=== PATIENT | male | born 1935 | race Caucasian/White ===

== ENCOUNTER 2017-06-18 10:49 | Outpatient (CLI) | payer MEDICARE ==
--- NOTE | 2017-06-18 12:51 | RAD ---
CHEST 2 VIEWS: HISTORY: Dyspnea. COMPARISON: 05/28/16. FINDINGS: Cardiac silhouette and pulmonary vasculature are unremarkable. Calcified granulomata are consistent with healed granulomatous disease. Lungs remain hyperinflated with flattening of the hemidiaphragms and mild bibasilar atelectasis, right greater than left. There is no lobar consolidation, pneumothor ax, or pleural fluid visible. IMPRESSION: 1. Chronic obstructive pulmonary disease. 2. Atherosclerosis. POS: [facility]
== END 2017-06-18 10:50 | disposition home or self-care (01) ==
LOC: RAD 10:49
PROVIDERS: ATTEND Internal Medicine Critical Care Medicine
DX: R06.00 Dyspnea, unspecified (principal); J44.9 Chronic obstructive pulmonary disease, unspecified; I70.90 Unspecified atherosclerosis
CPT/HCPCS: 71046

== ENCOUNTER 2017-11-02 12:11 | Emergency (ER) | payer MEDICARE | END 2017-11-02 12:38 | disposition home or self-care (01) | LOC: ERS 12:11 | DX: S51.012A Laceration without foreign body of left elbow, initial encounter (principal); E78.5 Hyperlipidemia, unspecified; I10 Essential (primary) hypertension; I25.10 Atherosclerotic heart disease of native coronary artery without angina pectoris; Z85.46 Personal history of malignant neoplasm of prostate; W19.XXXA Unspecified fall, initial encounter | CPT/HCPCS: 99283 ==

== ENCOUNTER 2018-11-10 10:29 | Outpatient (CLI) | payer MEDICARE ==
--- NOTE | 2018-11-10 10:41 | RAD ---
Exam: CHEST 2 VIEWS: COMPARISON: 06/18/2017. HISTORY: Dyspnea. FINDINGS: Slight elongation of the aorta. Normal cardiac silhouette. Coronary calcifications and coronary arter y stents are noted. Pulmonary vessels are normal. Costophrenic angles are clear. Hyperinflation with chronic change. Round mass right lower lobe measuring 4.2 x 3.2 cm. No pneumothorax. IMPRESSION: 1. Hyperinflation. COPD. Chronic changes. 2. Right lower lobe masslike opacity. Chest CT is recommended. CODE T CODE LN. Transcribed Date/Time: 11/10/2018 10:58 AM
== END 2018-11-10 10:30 | disposition home or self-care (01) ==
LOC: RAD 10:29
PROVIDERS: ATTEND Internal Medicine Pulmonary Disease
DX: R06.00 Dyspnea, unspecified (principal); J44.9 Chronic obstructive pulmonary disease, unspecified; J98.4 Other disorders of lung
CPT/HCPCS: 71046

== ENCOUNTER 2018-11-11 12:46 | Outpatient (CLI) | payer MEDICARE ==
[~2018-11-11 12:46] MED LIST: Iopamidol 370 76% 100 ML VIAL ONE
--- NOTE | 2018-11-11 14:20 | CT ---
CT CHEST WITH IV CONTRAST: 11/11/18 HISTORY: Lung mass. COMPARISON: 08/10/16. FINDINGS: Lungs remain hyperinflated. The dominant soft tissue density mass with peripheral spiculation at the lateral base of the right lower lobe now measures up to 5.7 cm x 2.8 cm width x 5.7 cm depth. Large r than on the prior exam. Tiny nodules scattered throughout the remainder of the right lung and bilateral areas of parenchymal scarring are stable. No pleural fluid or pneumothorax. No enlarged lymph nodes are apparent within th e mediastinum. Prominent arterial calcifications. Adrenal glands are unremarkable. No enlarged lymph nodes are apparent within the mediastinum. IMPRESSION: Significant interval enlargement of right lower lobe mass. Atherosclerosis. POS: [facility]
--- NOTE | 2018-11-11 15:55 | HP ---
HISTORY OF PRESENT ILLNESS: Mr. Sanchez is an 83-year-old gentleman, who was found to have a right lower lung mass 3 x 4 cm, and he is scheduled for outpatient bronchoscopy and biopsy. He has been seen in the office since 2016, was initially referred here for a right lower lung spiculated mass, which we have been watching since 2016. He had a PET scan done in 2011, which was negative. He was found to have severe COPD. His subsequent x-rays were followed up and showed the right lower lung lesion to have no longer persisted. He is being followed every 6 months with a chest x-ray. His last x-ray 6 months ago was read as normal. His x-ray taken yesterday shows now clearly enlarging right lower lung mass. He is asymptomatic. No cough. No wheezing. No chest pain. No weight loss. PAST MEDICAL HISTORY: Pertinent for coronary artery disease, COPD, high cholesterol. PAST SURGICAL HISTORY: Prostate surgery, knee surgery, multiple cardiac stents. HOME CARDIAC MEDICATIONS: Include: 1. Aspirin a day. 2. Lipitor 40. 3. Advair 250. 4. Xanax. 5. ProAir as needed. ALLERGIES: NONE. SOCIAL HISTORY: Alcohol daily, wine. REVIEW OF SYSTEMS: Negative. PHYSICAL EXAMINATION: VITAL SIGNS: Sats were 94% on room air, pulse 80, blood pressure no wheezing or crackles. CARDIAC: Normal S1 and S2. No gallops. ABDOMEN: No masses. IMPRESSION: 1. Right lower lung slowly increasing mass, rule out bronchogenic carcinoma. 2. Chronic obstructive pulmonary disease. 3. Former smoker. 4. Peripheral vascular disease. 5. Coronary artery disease. PLAN: A bronchoscopy performed. We will repeat a PFT. Probably consider a PET scan before any surgical intervention is concerned. The patient understands, we will proceed with procedure tomorrow. Job ID: [id number]
== END 2018-11-11 12:47 | disposition home or self-care (01) ==
LOC: SCSCT 12:46
PROVIDERS: ATTEND Internal Medicine Pulmonary Disease
DX: R91.8 Other nonspecific abnormal finding of lung field (principal); I70.90 Unspecified atherosclerosis
CPT/HCPCS: 71260; 82565; Q9967

== ENCOUNTER → 2018-11-12 | Day surgery (SDC) | payer MEDICARE ==
[2018-11-11 17:18] VITALS: BMI 25.7
[~2018-11-12] MED LIST changes: +Albuterol Sulfate 2.5 mg/3 ml Neb NEB SCH; +Benzocaine 20% Spray 60 ML CAN ONE; +Fentanyl 100 MCG/2 ML VIAL ONE; -Iopamidol 370 76% 100 ML VIAL ONE; +Lidocaine 1% (PF) 30 ML VIAL ONE; +Lidocaine 4% PF 5 ML AMP NEB SCH; +Midazolam HCl 2 mg/2 ml Vial ONE
--- NOTE | 2018-11-12 11:56 | OP ---
DATE OF PROCEDURE: 11/12/2018 PROCEDURE PERFORMED: Bronchoscopy with transbronchial biopsy. INDICATION: Right lower lung mass, rule out bronchogenic carcinoma. POSTBRONCHOSCOPY DIAGNOSIS: Right lower lung mass, rule out bronchogenic carcinoma. DESCRIPTION OF PROCEDURE: After informed consent, the patient received nebulized 4 mL of 4% lidocaine and DuoNeb. During the procedure, his left nostril was prepped with lidocaine jelly. He is given 2 of Versed and 75 of fentanyl. The video flexible Olympus bronchoscope was then passed by the right nostril. Pharynx, hypopharynx and vocal cords were visualized and unremarkable. Entering the trachea, this was normal. Naina was sharp. The right lung was inspected initially right upper, right middle, and right lower lobe. No endobronchial obstruction or blood or pus seen. The left lung inspected thereafter. This is also unremarkable without any endobronchial obstruction, blood, or pus. Thereafter, the right lower lung was lavaged with normal saline total of 60 mL. Thereafter, under fluoroscopy, transbronchial biopsies corresponding to the right lower lobe, lateral anterior basilar segment were done. There was minimal bleeding, which was controlled with serial lavages. The patient otherwise tolerated the procedure well. The washings sent for AFB smear and culture, fungal smear and culture, routine Gram stain and C and S. The biopsy was sent for histopathology. Brushing was sent for cytology. BRIEF DISCHARGE NOTE: The patient tolerated the procedure well. Results will be made to the patient and family. Further recommendation as above. Job ID: [id number]
[2018-11-16 18:08] LABS: Fungus Stain Final report (.)
== END ==
LOC: SDC 08:06
PROVIDERS: ATTEND Internal Medicine Pulmonary Disease
PROC: 0BBF8ZX Excision of Right Lower Lung Lobe, Via Natural or Artificial Opening Endoscopic, Diagnostic (ICD-10-PCS; principal; 2018-11-12)
PROC: 0B9F8ZX Drainage of Right Lower Lung Lobe, Via Natural or Artificial Opening Endoscopic, Diagnostic (ICD-10-PCS; 2018-11-12)
PROC: 0B9F8ZX Drainage of Right Lower Lung Lobe, Via Natural or Artificial Opening Endoscopic, Diagnostic (ICD-10-PCS; 2018-11-12)
DX: J98.4 Other disorders of lung (principal); I25.10 Atherosclerotic heart disease of native coronary artery without angina pectoris; J44.9 Chronic obstructive pulmonary disease, unspecified; E78.00 Pure hypercholesterolemia, unspecified; I73.9 Peripheral vascular disease, unspecified; Z87.891 Personal history of nicotine dependence; Z95.5 Presence of coronary angioplasty implant and graft; Z79.82 Long term (current) use of aspirin; Z79.51 Long term (current) use of inhaled steroids; Z79.899 Other long term (current) drug therapy
CPT/HCPCS: 76000; 87070; 87102; 87116; 87205; 87206; 88104; 88112; 88305; 88312; 88313; 99152; 99153; J2001; J2250; J3010; J7620

== ENCOUNTER 2018-11-30 12:27 | Outpatient (CLI) | payer MEDICARE ==
--- NOTE | 2018-11-30 12:44 | RAD ---
XR Chest Pa Lat @ POB History: RA 06.00 dyspnea Comparison: Radiograph November 10, 2018 Findings: Chronic scarring and fibrosis throughout the lungs. Similar appearance large right lower lo be mass abutting the major fissure. Lungs are hyperinflated. There is nodular density right upper lobe. Impression: Similar appearance right lower lobe mass.
== END 2018-11-30 12:28 | disposition home or self-care (01) ==
LOC: RAD 12:27
PROVIDERS: ATTEND Internal Medicine Pulmonary Disease
DX: R06.00 Dyspnea, unspecified (principal); R91.8 Other nonspecific abnormal finding of lung field
CPT/HCPCS: 71046

== ENCOUNTER 2018-12-09 11:23 | Outpatient (CLI) | payer MEDICARE ==
--- NOTE | 2018-12-09 14:02 | PET ---
Exam: PET CT WITH ATTENUATION CORRECTION: HISTORY: Right lower lobe mass. Initial evaluation. COMPARISON: None. CORRELATION: Chest CT with contrast 11/11/2018. TECHNIQUE: PET scan with CT attenuation correction was performed from the skull base to the proximal thighs following the intravenous administration of 11.9 mCi of [id number]. FINDINGS: Head and neck: No abnormal FDG localization. Chest: There is FDG avidity involving consolidation with air bronchograms in the right upper lobe, wi th a maximum SUV of 6.5. This area of consolidation was not appreciated on the CT from November 2018 and likely represents an acute pneumonia given rapid development. There is a focal mass in the right lower lobe but that has mixed FDG avidity. The majority of this lesion has a maximum SUV of 3.2. There is a focal component that has a maximum SUV of 6.5. This focal component is felt to represent t he invasive component of adenocarcinoma. CT used for attenuation correction demonstrates patchy septal thickening in the middle lobe. There is a new nodule in the left upper lobe which is not significantly FDG avid. Nodule has a maximum SUV of 2.2 and was not present on the November 2018 CT. Abdomen pelvis: There is no abnormal FDG localization in the abdomen or pelvis. CT used for attenuati on correction demonstrates an endovascular stent. There is associated aneurysmal dilatation of the aorta, without obvious fat stranding. There is evidence of diverticulosis. There is evidence of previous prostate surgery Osseous structures: No abnormal FDG localization. IMPRESSION: 1. FDG avid consolidation in the right upper lobe has developed since the chest CT performed earlier in November 2018. Given rapid development, pneumonia is favored. 2. Focal mass like opacity in right lower lobe, worrisome for adenocarcinoma. The small focus that h as the greatest amount of FDG avidity is felt to be the invasive component. Lesion is amenable to percutaneous biopsy. Transcribed Date/Time: 12/09/2018 2:29 PM
== END 2018-12-09 11:24 | disposition home or self-care (01) ==
LOC: PET 11:23
PROVIDERS: ATTEND Internal Medicine Pulmonary Disease
DX: R91.8 Other nonspecific abnormal finding of lung field (principal)
CPT/HCPCS: 78815; A9552

== ENCOUNTER 2018-12-17 08:32 | Day surgery (SDC) | payer MEDICARE ==
[2018-12-16 14:00] VITALS: BMI 25.7
[2018-12-17 08:56] LABS: #Basophils 0.1 thou/uL (0.0-0.2); #Eosinphils 0.5 thou/uL (0.0-0.7); #Lymphocytes 1.2 thou/uL (1.20-3.40); #Monocytes 0.5 thou/uL (0.11-0.59); #Neutrophils 4.8 thou/uL (1.40-6.50); %Basophils 0.7 % (0.0-1.0); %Eosinophils 6.9 % (0.0-10.0); %Lymphocytes 17.5 % (21.0-51.0); %Neutrophils 67.9 % (42.0-75.0); Hemoglobin 15.3 g/dL (14.0-18.0); Mean Corpuscular HGB CONC 31.4 g/dL (32.0-36.0); Mean Corpuscular Hemoglobin 29.8 pg (27.0-31.0); Mean Platelet Volume 7.2 fL (7.4-10.4); Platelet Count 213 thou/uL (130-400); RBC Distribution Width 12.1 % (11.5-14.5); Red Blood Cell (RBC) Count 5.12 mill/uL (4.70-6.10)
[2018-12-17 09:01] LABS: INR-International Normal Ratio 1.1; PTT 30.1 SEC (22.9-36.1); Prothrombin Time 14.1 SEC (12.0-14.7)
[2018-12-17 10:17] VITALS: BP 119/81; TEMP 97.2
--- NOTE | 2018-12-17 13:26 | RAD ---
Chest inspiratory views HISTORY: Right lung mass with biopsy. Follow-up. COMPARISON: Lungs are well-inflated. Right upper lobe infiltrate and right lower lobe mass are again demonstrated, unchanged in appearance. Mediastinum is midline allowing for slight rightward rotation. IMPRESSION: No evidence of pneumothorax.
--- NOTE | 2018-12-17 13:44 | RAD ---
CHEST 1 VIEW: INDICATION: Status post lung biopsy. FINDINGS: No pneumothorax demonstrated. Prominent masses within the right upper lobe and right lower lobe pers ist. Chronic lung changes are similar. IMPRESSION: No pneumothorax demonstrated. POS: [facility]
--- NOTE | 2018-12-17 15:36 | CT ---
CT-guided right lower lobe mass biopsy HISTORY: Hypermetabolic right lower lobe lung mass. FINDINGS: After explaining the procedure and answering all questions, patient was placed on the CT ta ble in prone position and limited CT imaging of the chest was performed. A right posterior approach was planned. Sterile technique, buffered local anesthesia, CT guidance, and a right posterior interco stal approach were used to carefully advance a 19-gauge trocar needle into the spiculated mass in the right lower lobe. Position was confirmed with CT. A total of 4 20-gauge core biopsy specimens were obtained and submitted to Dr. Dsouza from pathology f or evaluation. Specimen adequacy was confirmed. Needle was removed. No evidence of pneumothorax. Patient tolerated the procedure well and was eventually discharged in good condition. IMPRESSION: Technically successful CT-guided biopsy right lower lobe lung mass. Pathology is pending.
== END 2018-12-17 13:40 | disposition home or self-care (01) ==
LOC: CT 08:32
PROVIDERS: ATTEND Internal Medicine Pulmonary Disease
DX: R91.8 Other nonspecific abnormal finding of lung field (principal); J18.1 Lobar pneumonia, unspecified organism; A31.0 Pulmonary mycobacterial infection; I25.10 Atherosclerotic heart disease of native coronary artery without angina pectoris; J44.9 Chronic obstructive pulmonary disease, unspecified; E78.5 Hyperlipidemia, unspecified; C61 Malignant neoplasm of prostate; Z87.891 Personal history of nicotine dependence; Z95.5 Presence of coronary angioplasty implant and graft
CPT/HCPCS: 32405; 36415; 71045; 77002; 85025; 85610; 85730; 88307; 88313; 88333; 88334; 88341; 88342

== ENCOUNTER 2019-01-04 10:44 | Outpatient (CLI) | payer MEDICARE ==
--- NOTE | 2019-01-04 11:56 | RAD ---
EXAM: Single view of the chest HISTORY: Preadmission chest x-ray; lung cancer COMPARISON: 12/17/2018 FINDINGS: Single view of the chest shows a normal sized cardiomediastinal silhouette. Chronic inters titial lung markings are present. There is improvement in the previously seen airspace opacities in the right lung. The bones are unremarkable. IMPRESSION: Right-sided improvement in the pulmonary opacities.
[2019-01-04 12:04] LABS: Hemoglobin 15.8 g/dL (14.0-18.0); Mean Corpuscular HGB CONC 33.8 g/dL (32.0-36.0); Mean Corpuscular Hemoglobin 31.9 pg (27.0-31.0); Mean Corpuscular Volume 94.4 fL (78.0-98.0); Mean Platelet Volume 7.8 fL (7.4-10.4); Platelet Count 137 thou/uL (130-400); RBC Distribution Width 12.5 % (11.5-14.5); Red Blood Cell (RBC) Count 4.94 mill/uL (4.70-6.10)
[2019-01-04 12:25] LABS: Anion Gap 13 mmol/L (10-20); BUN (Urea Nitrogen) 15 mg/dL (8.4-25.7); Calc. Creatinine Clearance 0 mL/min (70-130); Calcium 9.7 mg/dL (7.8-10.44); Carbon Dioxide 25 mmol/L (23-31); Chloride 105 mmol/L (98-107); Estimated GFR-MDRD 88; Glucose 105 mg/dL (83-110); Potassium 4.2 mmol/L (3.5-5.1); Sodium 139 mmol/L (136-145)
--- NOTE | 2019-01-06 13:14 | EKG ---
Test Reason : Blood Pressure : / mmHG Vent. Rate : 075 BPM Atrial Rate : 075 BPM P-R Int : 154 ms QRS Dur : 086 ms QT Int : 392 ms P-R-T Axes : 080 074 077 degrees QTc Int : 437 ms Normal sinus rhythm Normal ECG When compared with ECG of 10-AUG-2016 14:40, No significant change was found Confirmed by FANG BARRY (2) on 01/06/2019 1:14:22 PM Referred By: [facility] Confirmed By:FANG BARRY
== END 2019-01-04 10:45 | disposition home or self-care (01) ==
LOC: LABBT 10:44
PROVIDERS: ATTEND Thoracic Surgery (Cardiothoracic Vascular Surgery)
DX: Z01.818 Encounter for other preprocedural examination (principal); R91.8 Other nonspecific abnormal finding of lung field
CPT/HCPCS: 71045; 80048; 85027; 93005; 93010

== ENCOUNTER 2019-01-04 11:00 | Inpatient (IN) | payer MEDICARE ==
[2019-01-08] MEDS ORDERED: Midazolam HCl 2 mg/2 ml Vial ONE ×2 (06:16→06:35)
[2019-01-08] MEDS ORDERED: Fentanyl 100 MCG/2 ML VIAL ONE ×3 (06:16→06:36)
[2019-01-08] MEDS ORDERED: ceFAZolin Sodium (SDC) 2 GM/100 ML BAG ONE (06:19)
[2019-01-08] MEDS ORDERED: Acetaminophen 1,000 MG in Premix Bag 1 BAG IVPB PRN (07:37)
[2019-01-08] MEDS ORDERED: Acetaminophen 500 MG TAB PO PRN (07:38)
[2019-01-08] MEDS ORDERED: diphenhydrAMINE 50 MG/ML VIAL IM PRN (07:45)
[2019-01-08] MEDS ORDERED: Promethazine HCl 25 MG/ML VIAL IM PRN (07:45)
[2019-01-08] MEDS ORDERED: Naloxone HCl 0.4 mg/ml Vial IV PRN (07:45)
[2019-01-08] MEDS ORDERED: traMADol HCl 50 MG TAB PO PRN ×2 (07:45)
[2019-01-08] MEDS ORDERED: diphenhydrAMINE 50 MG/ML VIAL IVP PRN (07:45)
[2019-01-08] MEDS ORDERED: Naloxone HCl 0.4 mg/ml Vial IVP PRN (07:45)
[2019-01-08] MEDS ORDERED: Bupivacaine 0.25% 10 ML VIAL EPIDURAL PRN (07:45)
[2019-01-08] MEDS ORDERED: Zolpidem Tartrate 5 MG TAB PO PRN (07:45)
[2019-01-08] MEDS ORDERED: Promethazine HCl 25 MG SUPP PR PRN (07:45)
[2019-01-08] MEDS ORDERED: Ondansetron PF 4 MG/2 ML Vial IVP PRN ×2 (07:45→12:18)
[2019-01-08] MEDS ORDERED: Hydrocerin (Eucerin) Cream 120 gm Jar TOP PRN (07:45)
[2019-01-08] MEDS ORDERED: diphenhydrAMINE 25 MG CAP PO PRN (07:45)
[2019-01-08] MEDS ORDERED: HYDROcodone/Acetaminophen 5/325 mg Tablet PO PRN ×3 (07:45→12:18)
[2019-01-08] MEDS ORDERED: Lidocaine 1% PF 5 ML VIAL ONE (10:44)
[2019-01-08] MEDS ORDERED: Ketorolac Tromethamine 30 MG/ML VIAL ONE (10:44)
[2019-01-08] MEDS ORDERED: PROPOFOL 200 MG/20 ML VIAL ONE (10:44)
[2019-01-08] MEDS ORDERED: PHENYLEPHRINE-NS 100 MCG/ML 10 ML SYRINGE ONE (10:44)
[2019-01-08] MEDS ORDERED: Vecuronium 10 MG VIAL ONE (10:44)
[2019-01-08] MEDS ORDERED: ePHEDrine 50 MG/ML VIAL ONE (10:44)
[2019-01-08] MEDS ORDERED: Glycopyrrolate 0.2 MG/ML 5 ML SYRINGE ONE (10:44)
[2019-01-08] MEDS ORDERED: Ondansetron PF 4 MG/2 ML Vial ONE (10:44)
[2019-01-08] MEDS ORDERED: Phenylephrine HCL 10 MG/ML VIAL ONE (10:51)
[2019-01-08] MEDS ORDERED: Phenylephrine 1% Nasal Spray 15 ML BOT ONE (10:51)
--- NOTE | 2019-01-08 11:22 | OP ---
DATE OF PROCEDURE: 01/08/2019 PREOPERATIVE DIAGNOSIS: Right lower lobe lung cancer. PROCEDURE PERFORMED: Right thoracoscopy/thoracotomy with right lower lobectomy and node dissection. ANESTHESIA: General. ESTIMATED BLOOD LOSS: Less than 100. DESCRIPTION OF PROCEDURE: After adequate anesthesia had been obtained, the patient was prepped and draped. He was padded after being placed in the left lateral decubitus position and 5 mm scope was inserted through a port. Chest was entered and some adhesions were present. The tumor was identified in the lower lobe. A separate port site was introduced and dissection begun bluntly. At that time, it was felt that we would not be able to do a thoracoscopic resection just due to the lung volume that was impeding visualization. A posterolateral muscle-sparing thoracotomy was then carried out through about the 5th intercostal space. Major fissure was partly taken down with the Bovie molasses coloring operator, exposing pulmonary artery branches to the lower x2 and middle x1 lobe. Inferior pulmonary ligament was mobilized and adhesions were taken down from the upper and middle lobe and the chest wall. Inferior pulmonary vein was fully mobilized and a vascular staple was then used to divide this. Vascular stapler was then used to divide the 2 pulmonary artery branches to the lower lobe. At that time, the fissure between the middle lobe and the lower lobe was completed with a stapler. The bronchus was mobilized to the middle lobe and then to main bronchi to the lower lobe, and stapler was used to fire across the lower lobe bronchi. This was then airtight at 30 cm of water. Lymph nodes were then dissected from the hilum, and there was only 1 sizable node in the R4 distribution, it was mobilized. Two chest drains were then placed, following which the ribs were reapproximated with Vicryl catgut suture and the subcutaneous tissue, and skin closed in layers. Job ID: [id number]
[2019-01-08] MEDS ORDERED: Nitroglycerin 50 MG/250 ML BOT 250 ML IVPB PRN (12:18)
[2019-01-08] MEDS ORDERED: Promethazine HCl 25 MG/ML VIAL SLOW IVP PRN (12:18)
[2019-01-08] MEDS ORDERED: Lactated Ringer's 1,000 ML IV SCH (12:18)
[2019-01-08] MEDS ORDERED: Phenylephrine 10 MG/NS 250 ML 250 ML IVPB PRN (12:18)
[2019-01-08] MEDS ORDERED: Norepinephrine 8 MG/0.9% NS 250 ML IVPB PRN (12:18)
[2019-01-08] MEDS ORDERED: ALPRAZolam 0.5 MG TAB PO PRN (12:18)
--- NOTE | 2019-01-08 13:17 | RAD ---
RADIOGRAPH CHEST 1 VIEW: Date: 01-08-19 Time: 12:15 P.M. HISTORY: 83-year-old male status post right thoracotomy. COMPARISON: 01-04-19 at 11:50 a.m. FINDINGS: There is a spiculated approximately 2 x 1.5 cm nodule overlying the right midlung zone. The opacity a t the right lower lobe near the base is now poorly visualized. There are two new right sided chest tu bes, both entering the rib cage from the right lateral base. One of them traverses horizontally, the distal tip near midline at the base. The other extends to the apex. There is a new small right apical pneumothorax, estimated to be approximately 5-10% volume. There is a new cluster of surgical clips o verlapping the right mediastinum. Other than chronic interstitial markings at the left base, the left lung is clear. No pulmonary edema. No cardiomegaly. IMPRESSION: 1. Status post right thoracotomy. It is presumed that there has been either a biopsy or resection of the right lower lobe pulmonary mass that was suspicious for primary lung cancer. 2. 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 3. Small right apical pneumothorax. 4. Two right sided chest tubes. Code T JN POS: [facility]
[2019-01-08] MEDS: Ketorolac Tromethamine 30 MG/ML VIAL IVP SCH ×3 (14:53→23:58)
[2019-01-08] MEDS: CEFAZOLIN 2 GM in Sodium Chloride 0.9% 100 ML IVPB SCH ×2 (14:55→21:11)
[2019-01-08] MEDS: Lactated Ringer's 1,000 ML IV SCH (17:57)
[2019-01-08 18:49] LABS: Platelet Count 128 thou/uL (130-400)
[2019-01-08] MEDS: Mometasone/Formoterol 120 PUFF INHALER INH SCH (19:01)
[2019-01-08] MEDS: Famotidine 20 MG TAB PO SCH (21:11)
[2019-01-08] MEDS: fentaNYL Citrate/PF 500 MCG, Bupivacaine 10 ML in Sodium Chloride 0.9% 80 ML EPIDURAL SCH (23:57)
[2019-01-09] MEDS: HYDROcodone/Acetaminophen 5/325 mg Tablet PO PRN (02:17)
[2019-01-09] MEDS: Lactated Ringer's 1,000 ML IV SCH ×3 (02:25→20:22)
[2019-01-09] MEDS: Ketorolac Tromethamine 30 MG/ML VIAL IVP SCH ×3 (05:25→17:46)
[2019-01-09] MEDS: CEFAZOLIN 2 GM in Sodium Chloride 0.9% 100 ML IVPB SCH (05:26)
[2019-01-09 06:47] LABS: #Eosinphils 0.1 thou/uL (0.0-0.7); #Lymphocytes 1.1 thou/uL (1.20-3.40); #Neutrophils 6.8 thou/uL (1.40-6.50); %Basophils 0.1 % (0.0-1.0); %Eosinophils 0.8 % (0.0-10.0); %Lymphocytes 12.7 % (21.0-51.0); %Monocytes 10.6 % (0.0-10.0); %Neutrophils 75.9 % (42.0-75.0); Hemoglobin 13.8 g/dL (14.0-18.0); Mean Corpuscular HGB CONC 34.1 g/dL (32.0-36.0); Mean Corpuscular Volume 93.8 fL (78.0-98.0); Mean Platelet Volume 8.3 fL (7.4-10.4); Platelet Count 135 thou/uL (130-400); RBC Distribution Width 12.5 % (11.5-14.5); Red Blood Cell (RBC) Count 4.32 mill/uL (4.70-6.10)
[2019-01-09 06:51] LABS: Anion Gap 11 mmol/L (10-20); BUN (Urea Nitrogen) 14 mg/dL (8.4-25.7); Calc. Creatinine Clearance 104 mL/min (70-130); Calcium 8.8 mg/dL (7.8-10.44); Carbon Dioxide 24 mmol/L (23-31); Chloride 107 mmol/L (98-107); Estimated GFR-MDRD Greater than 90; Glucose 119 mg/dL (83-110); Potassium 3.9 mmol/L (3.5-5.1); Sodium 138 mmol/L (136-145)
[2019-01-09] MEDS: Mometasone/Formoterol 120 PUFF INHALER INH SCH ×2 (07:30→18:42)
[2019-01-09] MEDS ORDERED: Spiriva 18 MCG CAP (Box of 5 Caps) INH SCH (09:00)
[2019-01-09] MEDS: Aspirin 81 mg Enteric Coated Tablet PO SCH (09:44)
[2019-01-09] MEDS: Famotidine 20 MG TAB PO SCH ×2 (09:44→20:20)
--- NOTE | 2019-01-09 09:47 | RAD ---
CHEST 1 VIEW: Date: 01/09/19 COMPARISON: 01/08/19. HISTORY: Status post thoracotomy. FINDINGS: Stable cardiac silhouette. Stable opacification of lung parenchyma. Right-sided chest tube is redemon strated, oriented in a cephalad direction. The previously noted right-sided pneumothorax is less evid ent on the current examination. A stable second right-sided chest tube is oriented towards the diaphr agm. IMPRESSION: Slight decrease in size of a previously noted right-sided pneumothorax. POS: [facility]
[2019-01-09] MEDS ORDERED: Ondansetron ODT 8 MG TAB SL PRN (10:53)
[2019-01-09] MEDS ORDERED: Ondansetron ODT 4 MG TAB SL SCH (11:00)
[2019-01-09] MEDS: fentaNYL Citrate/PF 500 MCG, Bupivacaine 10 ML in Sodium Chloride 0.9% 80 ML EPIDURAL SCH (12:37)
[2019-01-09] MEDS ORDERED: Milk Of Magnesia 30 ML UDCUP PO PRN (12:49)
[2019-01-09] MEDS ORDERED: HYDROcodone/Acetaminophen 5/325 mg Tablet PO PRN ×2 (12:49)
[2019-01-09] MEDS ORDERED: Acetaminophen 650 MG Suppository PR PRN (12:49)
[2019-01-09] MEDS ORDERED: traMADol HCl 50 MG TAB PO PRN ×2 (12:49)
[2019-01-09] MEDS ORDERED: Bisacodyl 10 MG SUPP PR PRN (12:49)
[2019-01-09] MEDS ORDERED: Acetaminophen 325 MG TAB PO PRN (12:49)
[2019-01-09] MEDS ORDERED: Ondansetron PF 4 MG/2 ML Vial IVP PRN (12:49)
[2019-01-09] MEDS ORDERED: Mineral Oil ENEMA PR PRN (12:49)
[2019-01-09] MEDS ORDERED: Enoxaparin Sodium 40 MG/0.4 ML SYRINGE SC SCH ×2 (14:00→14:45)
[2019-01-09] MEDS: Metoclopramide HCl 10 MG/2 ML VIAL IVP SCH ×2 (14:59→20:20)
--- NOTE | 2019-01-09 18:47 | CON ---
DATE OF CONSULTATION: 01/09/2019 HISTORY OF PRESENT ILLNESS: Mr. Sanchez is an 83-year-old male, who was referred to Dr. Conrad for lobectomy. He had undergone a lung biopsy at the beginning of December, which revealed that the lung mass was adenocarcinoma. He has undergone his surgery and is in the intensive care unit. He is now mechanically ventilated and says he is feeling fine and breathing fine. PAST MEDICAL HISTORY: Remarkable for, 1. Carotid endarterectomy on the right by Dr. Conrad in 2015. 2. History of hypertension. 3. . 4. History of abdominal aortic aneurysm, requiring endovascular repair in 2009. 5. History of suprapubic prostatectomy. 6. History of stent in the left limb of his endovascular graft. FAMILY HISTORY: Positive for hypertension. Negative for lung disease in early age. SOCIAL HISTORY: Former smoker, he had had smoked for over 10 years. He drinks rarely. He is a nondrug user. He has no drug allergies reported. REVIEW OF SYSTEMS: A 10-point review of systems completed is negative. PHYSICAL EXAMINATION: GENERAL: He is sitting up, in no distress. Chest tube still in. He has an air leak. VITAL SIGNS: He is afebrile. Heart rate 88, respirations 18, oximetry is 92% on room air, and blood pressure 161/88. HEAD AND NECK: Unremarkable. No lymphadenopathy. LUNGS: Clear. HEART: Regular rhythm. S1 and S2 normal. ABDOMEN: Soft and nontender. EXTREMITIES: Without clubbing, cyanosis, or edema. NEUROLOGIC: Nonfocal. IMPRESSION: Status post lobectomy for a solitary pulmonary nodule. Lymph nodes pathology and tumor pathology are pending. I met with the son and answered all of his questions. Chest radiograph shows improvement of his pneumothorax. Overall, Dr. Conrad felt he was stable to move out of the Critical Care Unit and I would agree. This is a 50 minute consult, with greater than 50% of time spent on unit coordinating care. Job ID: [id number] MTDD
[2019-01-09] MEDS: Atorvastatin Calcium 40 MG TAB PO SCH (20:20)
[2019-01-09] MEDS: Lisinopril 10 MG TAB PO SCH (20:21)
[2019-01-10] MEDS: fentaNYL Citrate/PF 500 MCG, Bupivacaine 10 ML in Sodium Chloride 0.9% 80 ML EPIDURAL SCH ×2 (01:46→14:48)
[2019-01-10] MEDS: Metoclopramide HCl 10 MG/2 ML VIAL IVP SCH ×4 (01:48→21:10)
[2019-01-10] MEDS: Lactated Ringer's 1,000 ML IV SCH ×2 (01:53→11:07)
[2019-01-10 05:50] LABS: #Eosinphils 0.4 thou/uL (0.0-0.7); #Lymphocytes 1.1 thou/uL (1.20-3.40); #Neutrophils 8.8 thou/uL (1.40-6.50); %Basophils 0.3 % (0.0-1.0); %Eosinophils 3.1 % (0.0-10.0); %Lymphocytes 9.5 % (21.0-51.0); %Monocytes 9.1 % (0.0-10.0); %Neutrophils 77.9 % (42.0-75.0); Hemoglobin 13.4 g/dL (14.0-18.0); Mean Corpuscular HGB CONC 32.9 g/dL (32.0-36.0); Mean Corpuscular Hemoglobin 31.5 pg (27.0-31.0); Mean Corpuscular Volume 95.9 fL (78.0-98.0); Mean Platelet Volume 7.9 fL (7.4-10.4); Platelet Count 139 thou/uL (130-400); RBC Distribution Width 12.6 % (11.5-14.5); Red Blood Cell (RBC) Count 4.24 mill/uL (4.70-6.10); White Blood Cell (WBC) Count 11.3 thou/uL (4.8-10.8)
[2019-01-10 06:06] LABS: Anion Gap 12 mmol/L (10-20); BUN (Urea Nitrogen) 12 mg/dL (8.4-25.7); Calc. Creatinine Clearance 106 mL/min (70-130); Carbon Dioxide 25 mmol/L (23-31); Chloride 102 mmol/L (98-107); Estimated GFR-MDRD Greater than 90; Glucose 119 mg/dL (83-110); Potassium 5.1 mmol/L (3.5-5.1); Sodium 134 mmol/L (136-145)
[2019-01-10] MEDS: Mometasone/Formoterol 120 PUFF INHALER INH SCH ×2 (07:47→19:48)
[2019-01-10] MEDS: Famotidine 20 MG TAB PO SCH ×2 (07:57→21:10)
[2019-01-10] MEDS: Aspirin 81 mg Enteric Coated Tablet PO SCH (07:57)
--- NOTE | 2019-01-10 08:14 | RAD ---
EXAM: XR Chest 1 View Portable PROVIDED CLINICAL HISTORY: Status post thoracotomy COMPARISON: 01/09/2019 FINDINGS: Cardiac and mediastinal silhouette is unchanged in appearance. Diffuse prominence of the pulmonary in terstitium redemonstrated. Parenchymal opacity involving the right midlung zone appears similar. Development of parenchymal opacity at the right lung base. Development of extensive soft tissue gas a t right chest wall inferiorly. Pneumothorax is not definitely apparent. No significant pleural fluid evident. Right-sided chest tubes appear in similar position. IMPRESSION: Development of right basilar parenchymal opacity may reflect volume loss or developing infiltrate. Development of subcutaneous emphysema right inferior lateral chest wall.
[2019-01-10] MEDS ORDERED: Enoxaparin Sodium 40 MG/0.4 ML SYRINGE SC SCH (09:00)
[2019-01-10] MEDS ORDERED: ALPRAZolam 0.5 MG TAB PO PRN (13:02)
--- NOTE | 2019-01-10 18:57 | PRG ---
DATE OF SERVICE: 01/10/2019 SUBJECTIVE: Mr. Sanchez is doing well. He has no complaints. He still has a large air leak. OBJECTIVE: VITAL SIGNS: Stable. He is afebrile. Heart rate is 82, respiratory rate is 18, oximetry is 96% on 2 L, blood pressure 160/92. LUNGS: He has equal breath Sounds. HEART: Regular rhythm. ABDOMEN: Soft. DIAGNOSTIC DATA: Chest radiograph is hazy at the right base, which I suspect is atelectasis. He has subcu emphysema that can be seen on his radiograph. IMPRESSION: Status post lobectomy, clinically stable. We will continue to follow. Job ID: [id number]
[2019-01-10] MEDS: Atorvastatin Calcium 40 MG TAB PO SCH (21:10)
[2019-01-10] MEDS: Lisinopril 10 MG TAB PO SCH (21:10)
[2019-01-11] MEDS: Metoclopramide HCl 10 MG/2 ML VIAL IVP SCH ×2 (01:24→08:23)
[2019-01-11] MEDS: fentaNYL Citrate/PF 500 MCG, Bupivacaine 10 ML in Sodium Chloride 0.9% 80 ML EPIDURAL SCH (03:44)
[2019-01-11] MEDS: Mometasone/Formoterol 120 PUFF INHALER INH SCH ×2 (06:52→18:34)
[2019-01-11] MEDS: Famotidine 20 MG TAB PO SCH ×2 (08:22→20:47)
[2019-01-11] MEDS: Aspirin 81 mg Enteric Coated Tablet PO SCH (08:22)
--- NOTE | 2019-01-11 09:23 | PRG ---
DATE OF SERVICE: 01/11/2019 SUBJECTIVE: This morning, James Sanchez is telling me he is having difficulty breathing. He is sitting on the side of the bed, but appears to be in no distress. X-ray shows a right lower lobe infiltrate. OBJECTIVE: VITAL SIGNS: Saturations 100% on room air, blood pressure 92/60s, respirations 16, temperature 98. CHEST: No wheezing or crackles. CARDIAC: Normal S1 and S2. No gallops. ABDOMEN: No mass. IMPRESSION: 1. Status post right lower lobectomy. 2. Chronic obstructive pulmonary disease. PLAN: I have added schedule neb treatments. He is stayed with Dulera as prescribed. PT, supportive care. Await path. Job ID: [id number]
--- NOTE | 2019-01-11 09:41 | RAD ---
SINGLE VIEW OF THE CHEST: COMPARISON: 01/10/2019. HISTORY: Status post thoracotomy. FINDINGS: A single view of the chest shows a normal size cardiomediastinal silhouette. There are 2 right-sided chest tubes. Increased interstitial lung markings are present. Atelectasis versus infiltrate is se en in the right lower lobe. No change has occurred compared to the prior exam. IMPRESSION: Stable exam. POS: [facility]
[2019-01-11] MEDS: HYDROcodone/Acetaminophen 5/325 mg Tablet PO PRN (20:47)
[2019-01-11] MEDS: Atorvastatin Calcium 40 MG TAB PO SCH (20:47)
[2019-01-11] MEDS: Lisinopril 10 MG TAB PO SCH (20:47)
[2019-01-12] MEDS: Mometasone/Formoterol 120 PUFF INHALER INH SCH ×2 (06:44→18:47)
[2019-01-12] MEDS: fentaNYL Citrate/PF 500 MCG, Bupivacaine 10 ML in Sodium Chloride 0.9% 80 ML EPIDURAL SCH ×2 (07:31→22:30)
[2019-01-12] MEDS ORDERED: Polyethylene Glycol 3350 17 GM Packet PO PRN (08:08)
[2019-01-12] MEDS ORDERED: Ibuprofen 600 MG TAB PO PRN (09:06)
--- NOTE | 2019-01-12 09:19 | RAD ---
EXAM: Single view of the chest HISTORY: COPD COMPARISON: 01/11/2019 FINDINGS: Single view of the chest shows a normal sized cardiomediastinal silhouette. Right-sided ch est tubes are unchanged in position. Air is seen along the right chest wall. There is elevation of the right hemidiaphragm with adjacent atelectasis. Degenerative changes are seen in the spine. IMPRESSION: Stable exam
--- NOTE | 2019-01-12 09:22 | PRG ---
DATE OF SERVICE: 01/12/2019 SUBJECTIVE: This morning, he is awake, alert, and responsive. He is less confused as per the nurses. OBJECTIVE: VITAL SIGNS: Saturations are 94% on room air, respirations 18, and temperature 99.2, pulse 100, blood pressure 97/62. CHEST: Decreased breath sounds. No wheezing. CARDIAC: Normal S1 and S2. No gallops. ABDOMEN: No masses. IMPRESSION: 1. Status post right lower lobectomy, adenocarcinoma with negative lymph nodes. 2. Chronic obstructive pulmonary disease. PLAN: Continue supportive care, PT. Avoid excessive sedation. We will follow. Job ID: [id number] MTDD
[2019-01-12] MEDS ORDERED: ALPRAZolam 0.25 MG TAB PO SCH (09:30)
[2019-01-12] MEDS: Famotidine 20 MG TAB PO SCH ×2 (09:42→21:18)
[2019-01-12] MEDS: Aspirin 81 mg Enteric Coated Tablet PO SCH (09:42)
[2019-01-12] MEDS ORDERED: predniSONE 5 MG TAB PO SCH (09:45)
[2019-01-12] MEDS: Polyethylene Glycol 3350 17 GM Packet PO SCH (09:48)
[2019-01-12] MEDS: Acetaminophen 325 MG TAB PO SCH ×2 (17:59→23:09)
[2019-01-12] MEDS: ALPRAZolam 0.25 MG TAB PO SCH (21:18)
[2019-01-12] MEDS: Atorvastatin Calcium 40 MG TAB PO SCH (21:18)
[2019-01-13] MEDS: Acetaminophen 325 MG TAB PO SCH ×3 (05:57→19:10)
[2019-01-13] MEDS: Mometasone/Formoterol 120 PUFF INHALER INH SCH ×2 (07:10→18:41)
[2019-01-13] MEDS ORDERED: predniSONE 5 MG TAB PO SCH (08:00)
[2019-01-13] MEDS: Polyethylene Glycol 3350 17 GM Packet PO SCH (08:30)
[2019-01-13] MEDS: predniSONE 5 MG TAB PO SCH (08:30)
[2019-01-13] MEDS: Aspirin 81 mg Enteric Coated Tablet PO SCH (08:31)
[2019-01-13] MEDS: Famotidine 20 MG TAB PO SCH ×2 (08:31→20:17)
--- NOTE | 2019-01-13 09:13 | RAD ---
CHEST ONE VIEW: HISTORY: Obstructive pulmonary disease. COMPARISON: Radiograph from the prior day. FINDINGS: There are two thoracostomy tubes in similar position. The SidePort of the basilar thoracostomy tube is outside the chest wall. Interval decreased right pleural fluid. Left lung is similar. There appears to be scarring in the left lower lobe. IMPRESSION: 1. Interval size decrease of the right layering pleural effusion. 2. Small to moderate right apical pneumothorax. POS: [facility]
[2019-01-13] MEDS ORDERED: HYDROcodone/Acetaminophen 5/325 mg Tablet PO PRN ×2 (09:34)
--- NOTE | 2019-01-13 10:29 | PRG ---
DATE OF SERVICE: 01/13/2019 SUBJECTIVE: This morning, he is less short of breath. He tells me cough with clear sputum. OBJECTIVE: VITAL SIGNS: Temperature 97, pulse 81, respirations 18, saturations are 95% on 3 L, and blood pressure 137/80. CHEST: Decreased breath sounds. No wheezing. CARDIAC: Normal S1 and S2. No gallops. ABDOMEN: Soft. LABORATORY DATA: Chest x-ray still shows persistent right lower lobe density. IMPRESSION: 1. Chronic obstructive pulmonary disease. 2. Status post right lower lobectomy adenocarcinoma. PLAN: Continue supportive care, PT, neb treatments. Hopefully, when the chest tube is removed, he can be discharged home. Job ID: [id number]
[2019-01-13] MEDS: Tamsulosin HCl 0.4 MG CAP PO SCH (12:29)
[2019-01-13] MEDS: Atorvastatin Calcium 40 MG TAB PO SCH (20:16)
[2019-01-13] MEDS: ALPRAZolam 0.25 MG TAB PO SCH (20:16)
[2019-01-14 06:21] LABS: #Eosinphils 0.6 thou/uL (0.0-0.7); #Lymphocytes 1.1 thou/uL (1.20-3.40); %Basophils 0.4 % (0.0-1.0); %Eosinophils 5.8 % (0.0-10.0); %Lymphocytes 10.4 % (21.0-51.0); %Monocytes 9.4 % (0.0-10.0); %Neutrophils 74.1 % (42.0-75.0); Hemoglobin 13.9 g/dL (14.0-18.0); Mean Corpuscular HGB CONC 33.9 g/dL (32.0-36.0); Mean Corpuscular Volume 94.4 fL (78.0-98.0); Mean Platelet Volume 7.5 fL (7.4-10.4); Platelet Count 228 thou/uL (130-400); RBC Distribution Width 12.4 % (11.5-14.5); Red Blood Cell (RBC) Count 4.35 mill/uL (4.70-6.10); White Blood Cell (WBC) Count 10.8 thou/uL (4.8-10.8)
[2019-01-14 06:33] LABS: Anion Gap 12 mmol/L (10-20); BUN (Urea Nitrogen) 12 mg/dL (8.4-25.7); Calc. Creatinine Clearance 110 mL/min (70-130); Calcium 9.2 mg/dL (7.8-10.44); Carbon Dioxide 29 mmol/L (23-31); Chloride 100 mmol/L (98-107); Estimated GFR-MDRD Greater than 90; Glucose 140 mg/dL (83-110); Sodium 137 mmol/L (136-145)
[2019-01-14] MEDS: Mometasone/Formoterol 120 PUFF INHALER INH SCH ×2 (07:08→20:06)
--- NOTE | 2019-01-14 08:10 | RAD ---
XR Chest 1 View Portable History: Obstructive pulmonary disease Comparison: Radiograph prior day Findings: Right thoracostomy tubes are similar. Some cutaneous emphysema is similar. Side port of the more caudal right basilar thoracostomy tube appears outside the rib cage. Trace right apical pneumothorax. Basilar aeration is improving. Low-grade expansion pulmonary edema. Extensive scarring throughout the left lung. Impression: Improving aeration of the right lung.
[2019-01-14] MEDS: Polyethylene Glycol 3350 17 GM Packet PO SCH (08:37)
[2019-01-14] MEDS: predniSONE 5 MG TAB PO SCH (08:37)
[2019-01-14] MEDS: Tamsulosin HCl 0.4 MG CAP PO SCH (08:37)
[2019-01-14] MEDS: Famotidine 20 MG TAB PO SCH ×2 (08:37→21:04)
[2019-01-14] MEDS: Aspirin 81 mg Enteric Coated Tablet PO SCH (08:39)
--- NOTE | 2019-01-14 09:09 | PRG ---
DATE OF SERVICE: 01/14/2019 SUBJECTIVE: This morning, he said he is still feeling weak, does not feel up to par. OBJECTIVE: VITAL SIGNS: Saturations are 94% on 2 L, respirations 16, temperature 97, pulse 107, and blood pressure 96/69. CHEST: Decreased breath sounds. No wheezing. CARDIAC: Normal S1 and S2. No gallops. ABDOMEN: No masses. LABORATORY DATA: X-ray shows improvement in the right lower lung infiltrate. His labs unremarkable. H and H are stable. Lytes are normal. IMPRESSION: 1. Status post right lower lobectomy, adenocarcinoma. 2. Baseline underlying chronic obstructive pulmonary disease. 3. Severe deconditioning. PLAN: Continue PT and supportive care. Still having significant CT drainage. One chest tube is removed. He can be discharged home. We will follow. Job ID: [id number]
[2019-01-14 16:12] VITALS: BMI 28.5
[2019-01-14] MEDS: ALPRAZolam 0.25 MG TAB PO SCH (21:04)
[2019-01-14] MEDS: Atorvastatin Calcium 40 MG TAB PO SCH (21:04)
[2019-01-15] MEDS: Mometasone/Formoterol 120 PUFF INHALER INH SCH (06:31)
--- NOTE | 2019-01-15 06:34 | PRG ---
DATE OF SERVICE: 01/15/2019 SUBJECTIVE: This morning, he is awake, responsive. He is weak. OBJECTIVE: VITAL SIGNS: Saturations are 98% on 2 L, respirations 16, temperature 97, pulse 80, blood pressure 136/84. CHEST: Decreased breath sounds. No wheezing. CARDIAC: Normal S1 and S2. ABDOMEN: No masses. IMPRESSION: 1. Status post right lower lobectomy, adenocarcinoma. 2. Severe chronic obstructive pulmonary. 3. Severe deconditioning. 4. Advanced age. PLAN: May benefit from home health versus rehab placement. Continue PT, supportive care, low-dose prednisone for a week; otherwise, he has all other inhalers at home. Job ID: [id number]
[2019-01-15] MEDS: Famotidine 20 MG TAB PO SCH (09:14)
[2019-01-15] MEDS: Tamsulosin HCl 0.4 MG CAP PO SCH (09:14)
[2019-01-15] MEDS: predniSONE 5 MG TAB PO SCH (09:14)
[2019-01-15] MEDS: Polyethylene Glycol 3350 17 GM Packet PO SCH (09:14)
[2019-01-15] MEDS: Aspirin 81 mg Enteric Coated Tablet PO SCH (09:14)
[2019-01-15 11:17] VITALS: BP 108/73; TEMP 98.3
--- NOTE | 2019-01-16 04:15 | DIS ---
DATE OF ADMISSION: 01/08/2019 DATE OF DISCHARGE: 01/15/2019 HOSPITAL COURSE: This is an 83-year-old gentleman who underwent a right lower lobectomy for biopsy-proven carcinoma. 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 The tumor was well differentiated. His postoperative course was notable for perioperative air leak, which stopped and then ultimately his chest tubes were removed on 01/14. He will be transferred to rehab on 01/15 to assist with rehabilitation. He was ambulating in the room independently, but we will need help to regain enough stamina to tolerate discharge to his home. He has received a short course of prednisone to be completed in 2 more days. Otherwise, his lisinopril has been held and he has been making satisfactory progress from major surgery at his age. Discharge and followup instructions have been given. Job ID: [id number]
--- NOTE | 2019-01-18 10:29 | PQF ---
TUCKER STACK JAMES M MD [id number] SURG A- [id number] CLINICAL DOCUMENTATION IMPROVEMENT CLARIFICATION FORM: ICD-10 Updated PLEASE DO AN ADDENDUM TO THE PROGRESS NOTE WITH ANY DOCUMENTATION UPDATES OR ADDITIONS AND CARRY THROUGH TO DC SUMMARY. THANK YOU. DATE: 01/18/2019 ATTN:DR. Demarco MADRID Please exercise your independent, professional judgment in responding to the clarification form. Clinical indicators are provided on the bottom of this form for your review. Please check appropriate box(s): [ ] Pneumothorax is a complication of current/recent surgery [ y ] Pneumothorax is not a complication of current/recent surgery [ ] Other diagnosis [ ] Unable to determine In addition, please specify: Present on Admission (POA): [ ] Yes [ y ] No [ ] Unable to determine CLINICAL INDICATORS - SIGNS / SYMPTOMS / LABS 01/08 CXR : SMALL RIGHT ATYPICAL PNEUMOTHORAX 01/09 ([facility]) :IMPRESSION - CHEST RADIOGRAPHY SHOWS IMPROVEMENT OF HIS PNEUMOTHORAX 01/10 ([facility]) : STILL HAS A LARGE AIR LEAK 01/12 ([facility]) : HE IS LESS CONFUSED PER THE NURSES- AVOID EXCESSIVE SEDATION RISK: SX ON 01/08- RT THORACOTOMY W RT LOBECTOMY AND NODE DISSECTION TREATMENTS: PULMONOLOGY CONSULT EXCHANGE OF PLEURA VAC ON 01/10 CXR THANK YOU! KATH (This form is maintained as a part of the permanent medical record) 2014 [employer]. All Rights Reserved [email or web address] [phone] MTDD
== END 2019-01-15 14:05 | DRG 164 ==
LOC: SURG A 01-08 05:50 → CCU 01-08 13:23 → SURG A 01-09 12:36
PROVIDERS: ADMIT Thoracic Surgery (Cardiothoracic Vascular Surgery); ATTEND Thoracic Surgery (Cardiothoracic Vascular Surgery)
PROC: 0BBF0ZZ Excision of Right Lower Lung Lobe, Open Approach (ICD-10-PCS; principal; 2019-01-08)
PROC: 07B73ZX Excision of Thorax Lymphatic, Percutaneous Approach, Diagnostic (ICD-10-PCS; 2019-01-08)
PROC: 0T9B70Z Drainage of Bladder with Drainage Device, Via Natural or Artificial Opening (ICD-10-PCS; 2019-01-09)
DX: C34.31 Malignant neoplasm of lower lobe, right bronchus or lung (principal); J93.9 Pneumothorax, unspecified; K56.7 Ileus, unspecified; I10 Essential (primary) hypertension; J43.9 Emphysema, unspecified; E78.5 Hyperlipidemia, unspecified; I25.10 Atherosclerotic heart disease of native coronary artery without angina pectoris; R33.9 Retention of urine, unspecified; Z79.899 Other long term (current) drug therapy; Z79.82 Long term (current) use of aspirin; Z87.891 Personal history of nicotine dependence
CPT/HCPCS: 36415; 71045; 80048; 85014; 85018; 85025; 85049; 86850; 86900; 86901; 88305; 88309; 88313; 88331; 94640; 94664; J0690; J1200; J1642; J1650; J1885; J2001; J2250; J2370; J2405; J2704; J2765; J3010; J3490; J7512; J7620; Q0162

== ENCOUNTER 2019-02-09 13:20 | Outpatient (CLI) | payer MEDICARE ==
--- NOTE | 2019-02-09 14:17 | RAD ---
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 FINDINGS/IMPRESSION: Comparison made with exam of 01/14/19. The right-sided chest tubes have been removed in the interim. Chronic changes are seen in the lung fi elds bilaterally. No lobar consolidation, pneumothoraces, or pleural effusions are seen. There are po stop changes in the right superior hilar region. POS: [facility]
== END 2019-02-09 13:21 | disposition home or self-care (01) ==
LOC: RAD 13:20
PROVIDERS: ATTEND Thoracic Surgery (Cardiothoracic Vascular Surgery)
DX: D38.1 Neoplasm of uncertain behavior of trachea, bronchus and lung (principal); Z98.890 Other specified postprocedural states
CPT/HCPCS: 71046

== ENCOUNTER 2019-05-20 13:20 | Outpatient (CLI) | payer MEDICARE ==
--- NOTE | 2019-05-20 14:06 | RAD ---
PA AND LATERAL CHEST: HISTORY: Neoplasm of trachea, bronchus and lung. COMPARISON: 02/09/2019 FINDINGS: The heart size is normal. Chronic parenchymal changes again seen bilaterally. Postop changes of the r ight superior hilar region again seen. No lobar consolidation, pneumothoraces or pleural effusions id entified. IMPRESSION: Stable examination. No acute process. POS: [facility]
== END 2019-05-20 13:21 | disposition home or self-care (01) ==
LOC: RAD 13:20
PROVIDERS: ATTEND Thoracic Surgery (Cardiothoracic Vascular Surgery)
DX: D38.1 Neoplasm of uncertain behavior of trachea, bronchus and lung (principal)
CPT/HCPCS: 71046

== ENCOUNTER 2020-02-22 10:20 | Outpatient (CLI) | payer MEDICARE ==
--- NOTE | 2020-02-22 10:36 | RAD ---
EXAM: Chest 2 views: HISTORY: Dyspnea COMPARISON: 10/17/2014 FINDINGS: There is a normal-sized cardiomediastinal silhouette. Increased interstitial lung markings are prese nt. Requester superimposed peripheral airspace opacities in the lower lobes. Degenerative changes are seen in the spine. IMPRESSION: Possible subtle bilateral lower lobe infiltrates
== END 2020-02-22 10:21 | disposition home or self-care (01) ==
LOC: BICRAD 10:20
PROVIDERS: ATTEND Internal Medicine Pulmonary Disease
DX: R06.00 Dyspnea, unspecified (principal)
CPT/HCPCS: 71046

== ENCOUNTER 2021-10-24 11:31 | Outpatient (CLI) | payer MEDICARE | END 2021-10-24 11:32 | disposition home or self-care (01) | LOC: RAD 11:31 | PROVIDERS: ATTEND Internal Medicine Critical Care Medicine | DX: R06.00 Dyspnea, unspecified (principal) | CPT/HCPCS: 71046 ==

== ENCOUNTER 2023-12-19 09:37 | Outpatient (CLI) | payer MEDICARE, BC | END 2023-12-19 09:38 | disposition home or self-care (01) | LOC: RAD 09:37 | PROVIDERS: ATTEND Internal Medicine Critical Care Medicine | DX: R06.00 Dyspnea, unspecified (principal); J18.1 Lobar pneumonia, unspecified organism; J84.10 Pulmonary fibrosis, unspecified | CPT/HCPCS: 71046 ==

== ENCOUNTER 2024-02-26 08:53 | Outpatient (CLI) | payer MEDICARE, BC | END 2024-02-26 08:54 | disposition home or self-care (01) | LOC: RAD 08:53 | PROVIDERS: ATTEND Internal Medicine Critical Care Medicine | DX: R06.00 Dyspnea, unspecified (principal); J84.10 Pulmonary fibrosis, unspecified; R91.8 Other nonspecific abnormal finding of lung field | CPT/HCPCS: 71046 ==